=== PATIENT | female | born 1970 | race Caucasian/White ===

== ENCOUNTER 2020-06-01 22:09 | Emergency (ER) | payer OTHER ==
[~2020-06-01 22:09] MED LIST: CRUTCH1 EACH; IBUPROFEN600 MG PO; IBUPROFEN800 MG PO; PERCOCET 5-3251 EACH PO; VITAMIN D50000 UNI1 PO
== END 2020-06-01 23:55 | disposition home or self-care (01) ==
LOC: ED 22:09
DX: S50.861A Insect bite (nonvenomous) of right forearm, initial encounter (principal); F17.200 Nicotine dependence, unspecified, uncomplicated; Z88.1 Allergy status to other antibiotic agents; Z91.040 Latex allergy status; Z79.899 Other long term (current) drug therapy; W57.XXXA Bitten or stung by nonvenomous insect and other nonvenomous arthropods, initial encounter
CPT/HCPCS: 99282

== ENCOUNTER → 2020-11-28 | Emergency (ER) | payer OTHER ==
[~2020-11-28] VITALS: Ht 162.6 cm; Wt 77.1 kg
[~2020-11-28] MED LIST changes: +BUSPIRONE HCL15 MG PO; +NEURONTIN300 MG PO; +NORCO 5-325 TA1 EACH PO; +OMEPRAZOLE40 MG PO; +STOOL SOFTENER250 MG PO; +ZOCOR10 MG PO
--- OUTSIDE RECORDS SUMMARY | 2020-11-28 08:38 | XMS ---
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 Blaze VISIT COUNT (12 MO.) 4 [facility] TOTAL 4 NOTE: Visits indicate total known visits. ED/UCC VISIT TRACKING (12 MO.) 11/28/2020 08:35 [facility] [place] TYPE: Emergency COMPLAINT: - CHEST PAIN 11/13/2020 19:47 [facility] [place] TYPE: Emergency COMPLAINT: - LEG PAIN DIAGNOSES: - Allergy status to other antibiotic agents - Other half-way (current) drug therapy - Pain in left leg - Fall on and from ladder, initial encounter - Pain in left knee - Latex allergy status 11/13/2020 09:56 [facility] [place] TYPE: Emergency COMPLAINT: - LT LEG PAIN DIAGNOSES: - Nicotine dependence, unspecified, uncomplicated - Other arc cutter (current) drug therapy - Sprain of unspecified site of left knee, initial encounter - Latex allergy status - Fall on and from ladder, initial encounter - Allergy status to other antibiotic agents 06/01/2020 22:09 [facility] [place] TYPE: Emergency COMPLAINT: - POSSIBLE INSECT BITE DIAGNOSES: - Latex allergy status - Other half-way (current) drug therapy - Insect bite (nonvenomous) of right forearm, initial encounter - Bitten or stung by nonvenomous insect and other nonvenomous arthropods, initial encounter - Nicotine dependence, unspecified, uncomplicated - Allergy status to other antibiotic agents INPATIENT VISIT TRACKING (12 MO.) No inpatient visits to display in this time frame [email or web address]
--- NOTE | 2020-11-28 21:22 | EKG ---
[facility] [address] [place], [place] [address] Signed Sinus tachycardia Otherwise normal ECG No previous ECGs available Confirmed by TYRELL SCHAEFER MD ([id number] on 11/28/2020 9:21:59 PM Electronically Signed By: TYRELL SCHAEFER MD 11/28/202121 PATIENT NAME: ASTRID REDMAN Electrocardiogram DATE OF : 72 PHYSICIAN: TYRELL SCHAEFER MD REPORT #: [id number] REPORT IS CONFIDENTIAL AND NOT TO BE RELEASED WITHOUT AUTHORIZATION
== END ==
LOC: ED 08:35
DX: R07.9 Chest pain, unspecified (principal); F17.200 Nicotine dependence, unspecified, uncomplicated; Z88.0 Allergy status to penicillin; Z91.040 Latex allergy status; Z88.5 Allergy status to narcotic agent; Z79.899 Other long term (current) drug therapy; Z20.822 Contact with and (suspected) exposure to COVID-19
CPT/HCPCS: 71045; 71260; 80053; 83735; 84484; 85025; 85379; 93005; 93010; 96374; 96375; 99285-25; C9803; J1650; J2405; J3010; Q9967; U0003

== ENCOUNTER 2020-12-02 22:01 | Emergency (ER) | payer OTHER ==
[~2020-12-02] VITALS: Ht 162.6 cm; Wt 77.1 kg
--- OUTSIDE RECORDS SUMMARY | 2020-12-02 22:04 | XMS ---
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 Blaze VISIT COUNT ([address] MO[address] [facility] TOTAL 5 NOTE: Visits indicate total known visits. ED/UCC VISIT TRACKING (12 MO.) 12/02/2020 22:02 [facility] [place] TYPE: Emergency COMPLAINT: - CHEST PAINS 11/28/2020 08:35 [facility] [place] TYPE: Emergency COMPLAINT: - CHEST PAIN DIAGNOSES: - CONTACT WITH AND (SUSPECTED) EXPOSURE TO COVID-19 - Latex allergy status - Other termination clerk (current) drug therapy - Allergy status to narcotic agent - Chest pain, unspecified - Nicotine dependence, unspecified, uncomplicated - Allergy status to penicillin 11/13/2020 19:47 [facility] [place] TYPE: Emergency COMPLAINT: - LEG PAIN DIAGNOSES: - Allergy status to other antibiotic agents - Other termination clerk (current) drug therapy - Pain in left leg - Fall on and from ladder, initial encounter - Pain in left knee - Latex allergy status 11/13/2020 09:56 [facility] [place] TYPE: Emergency COMPLAINT: - LT LEG PAIN DIAGNOSES: - Nicotine dependence, unspecified, uncomplicated - Other termination clerk (current) drug therapy - Sprain of unspecified site of left knee, initial encounter - Latex allergy status - Fall on and from ladder, initial encounter - Allergy status to other antibiotic agents 06/01/2020 22:09 [facility] [place] TYPE: Emergency COMPLAINT: - POSSIBLE INSECT BITE DIAGNOSES: - Latex allergy status - Other shelter (current) drug therapy - Insect bite (nonvenomous) of right forearm, initial encounter - Bitten or stung by nonvenomous insect and other nonvenomous arthropods, initial encounter - Nicotine dependence, unspecified, uncomplicated - Allergy status to other antibiotic agents INPATIENT VISIT TRACKING (12 MO.) [facility]2020 [facility] DIAGNOSES: - Chest pain on breathing - Unstable angina [email or web address]
[2020-12-03] MEDS ORDERED: VALACYCLOVIR1000 MG PO (00:47)
[2020-12-03] MEDS ORDERED: LIDODERM1 EACH TOP (00:47)
--- NOTE | 2020-12-03 22:22 | EKG ---
[facility] [address] [place] [address] Signed Normal sinus rhythm Normal ECG When compared with ECG of 28-NOV-2020 08:40, Nonspecific T wave abnormality now evident in Anterior leads Confirmed by DUC RM MD ([id number]) on 12/03/2020 10:22:00 PM Electronically Signed By: DUC RM MD 12/03/202221 PATIENT NAME: FEROZBRITANYCATHY ANDRES Electrocardiogram DATE OF : 72 PHYSICIAN: DUC RM MD REPORT #: [id number] REPORT IS CONFIDENTIAL AND NOT TO BE RELEASED WITHOUT AUTHORIZATION
== END 2020-12-03 01:00 | disposition home or self-care (01) ==
LOC: ED 22:01
DX: B02.9 Zoster without complications (principal); Z88.0 Allergy status to penicillin; Z91.040 Latex allergy status; Z88.5 Allergy status to narcotic agent; Z79.899 Other long term (current) drug therapy
CPT/HCPCS: 71046; 80053; 84484; 85025; 93005; 93010; 96374; 96375; 99285-25; J2060

== ENCOUNTER 2020-12-10 12:16 | Emergency (ER) | payer OTHER ==
[~2020-12-10] VITALS: Ht 162.6 cm; Wt 77.1 kg
[~2020-12-10 12:16] MED LIST changes: +LIDODERM1 EACH TOP; +VALACYCLOVIR1000 MG PO
--- OUTSIDE RECORDS SUMMARY | 2020-12-10 12:18 | XMS ---
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 Blaze VISIT COUNT (12 MO.) 6 [facility] TOTAL 6 NOTE: Visits indicate total known visits. ED/UCC VISIT TRACKING (12 MO.) 12/10/2020 12:17 [facility] [place] TYPE: Emergency COMPLAINT: - LIGHT HEADEDNESS, SHAKES, HEADACHE 12/02/2020 22:02 [facility] [place] TYPE: Emergency COMPLAINT: - CHEST PAIN DIAGNOSES: - Latex allergy status - Allergy status to narcotic agent - Zoster without complications - Chest pain, unspecified - Allergy status to penicillin - Other termite control service representative (current) drug therapy 11/28/2020 08:35 [facility] [place] TYPE: Emergency COMPLAINT: - CHEST PAIN DIAGNOSES: - CONTACT WITH AND (SUSPECTED) EXPOSURE TO COVID-19 - Allergy status to narcotic agent - Latex allergy status - Other nursing home (current) drug therapy - Allergy status to narcotic agent - Contact with and (suspected) exposure to other viral communicable diseases - Chest pain, unspecified - Nicotine dependence, unspecified, uncomplicated - Allergy status to penicillin 11/13/2020 19:47 [facility] [place] TYPE: Emergency COMPLAINT: - LEG PAIN DIAGNOSES: - Allergy status to other antibiotic agents - Allergy status to other antibiotic agents - Other termite control service representative (current) drug therapy - Pain in left leg - Fall on and from ladder, initial encounter - Pain in left knee - Latex allergy status 11/13/2020 09:56 [facility] [place] TYPE: Emergency COMPLAINT: - LT LEG PAIN DIAGNOSES: - Nicotine dependence, unspecified, uncomplicated - Other termite control service representative (current) drug therapy - Sprain of unspecified site of left knee, initial encounter - Latex allergy status - Fall on and from ladder, initial encounter - Allergy status to other antibiotic agents - Allergy status to other antibiotic agents 06/01/2020 22:09 [facility] [place] TYPE: Emergency COMPLAINT: - POSSIBLE INSECT BITE DIAGNOSES: - Latex allergy status - Other nursing home (current) drug therapy - Insect bite (nonvenomous) of right forearm, initial encounter - Bitten or stung by nonvenomous insect and other nonvenomous arthropods, initial encounter - Nicotine dependence, unspecified, uncomplicated - Allergy status to other antibiotic agents INPATIENT VISIT TRACKING (12 MO.) 11/28/2020 15:07 [facility] TYPE: Medical Surgical DIAGNOSES: - Chest pain on breathing - Unstable angina [id number]
[2020-12-10] MEDS ORDERED: PREDNISONE20 MG PO (12:32)
[2020-12-10] MEDS ORDERED: SIMVASTATIN10 MG PO (12:33)
[2020-12-10] MEDS ORDERED: HYDROCODON-ACE1 EA10 PO (12:34)
[2020-12-10] MEDS ORDERED: PRINIVIL10 MG PO (12:34)
[2020-12-10] MEDS ORDERED: ONDANSETRON ODT4 MG PO (13:31)
== END 2020-12-10 13:58 | disposition home or self-care (01) ==
LOC: ED 12:16
DX: F41.0 Panic disorder [episodic paroxysmal anxiety] (principal); T38.0X5A Adverse effect of glucocorticoids and synthetic analogues, initial encounter; M54.14 Radiculopathy, thoracic region; F17.200 Nicotine dependence, unspecified, uncomplicated; Z88.1 Allergy status to other antibiotic agents; Z91.040 Latex allergy status; Z88.5 Allergy status to narcotic agent; Z79.899 Other long term (current) drug therapy; Z79.52 Long term (current) use of systemic steroids; Z79.891 Long term (current) use of opiate analgesic
CPT/HCPCS: 99283

== ENCOUNTER 2021-05-29 13:18 | Emergency (ER) | payer OTHER ==
[~2021-05-29] VITALS: Ht 162.6 cm; Wt 77.1 kg
[~2021-05-29 13:18] MED LIST changes: +HYDROCODON-ACE1 EA10 PO; +ONDANSETRON ODT4 MG PO; +PREDNISONE20 MG PO; +PRINIVIL10 MG PO; +SIMVASTATIN10 MG PO
[2021-05-29] MEDS ORDERED: ZITHROMAX250 MG PO (13:39)
[2021-05-29] MEDS ORDERED: HYDROCHLOROTH12.5 MG PO (13:40)
[2021-05-29] MEDS ORDERED: ULTRAM50 MG PO (13:40)
[2021-05-29] MEDS ORDERED: HYDROCODON-ACE1 EA10 PO (14:57)
[2021-05-29] MEDS ORDERED: TESSALON PERLE100 MG PO (14:57)
[2021-05-29] MEDS ORDERED: ZOFRAN4 MG PO (14:58)
== END 2021-05-29 15:22 | disposition home or self-care (01) ==
LOC: ED 13:18
DX: J32.9 Chronic sinusitis, unspecified (principal); J06.9 Acute upper respiratory infection, unspecified; R19.7 Diarrhea, unspecified; F17.200 Nicotine dependence, unspecified, uncomplicated; Z88.1 Allergy status to other antibiotic agents; Z91.040 Latex allergy status; Z88.5 Allergy status to narcotic agent; Z79.899 Other long term (current) drug therapy
CPT/HCPCS: 71045; 80053; 81001; 85025; 96374; 96375; 99284-25; J1100; J1885; J2405; J7030

== ENCOUNTER 2024-07-19 11:09 | Emergency (ER) | payer OTHER ==
[~2024-07-19] VITALS: Ht 162.6 cm; Wt 83.3 kg
[~2024-07-19 11:09] MED LIST changes: +HYDROCHLOROTH12.5 MG PO; +TESSALON PERLE100 MG PO; +ULTRAM50 MG PO; +ZITHROMAX250 MG PO; +ZOFRAN4 MG PO
[2024-07-19] MEDS ORDERED: IBUPROFEN800 MG PO (11:22)
[2024-07-19] MEDS ORDERED: LIDOCAINE1 EACH TP (11:22)
[2024-07-19] MEDS ORDERED: NITROGLYCERIN 0.4 MG SUBL SL PRN (11:30)
[2024-07-19] MEDS ORDERED: ondansetron HCL 4 MG/2 ML VIAL IV ONE (11:30)
[2024-07-19] MEDS ORDERED: ASPIRIN 81 MG CHEW PO ONE (11:30)
[2024-07-19] MEDS ORDERED: HYDROmorphone HCL 1 MG/ML SYR IV ONE (11:30)
[2024-07-19 11:31] LABS: BASOPHILS 1.1 % (0-2); EOSINOPHILS 1.4 % (0-6); HEMATOCRIT 44.1 % (35.0-50.0); HEMOGLOBIN 14.9 g/dL (12.0-18.0); MCH 27.5 (27-36); MCHC 33.7 g/dl (30-36); MCV 81.6 fl (81-99); MONOCYTES 7.3 % (0-12); NEUTROPHILS 60.2 % (39-80); PLATELET COUNT 264 K/uL (140-440); RDW 15.2 (10.5-15.0)
[2024-07-19 11:51] LABS: ALBUMIN 4.5 g/dL (3.4-5.0); ALBUMIN/GLOBULIN RATIO 1.13 (1.1-2.4); ALKALINE PHOSPHATASE 138 U/L (46-116); ALT (SGPT) 33 U/L (14-59); ANION GAP 16.7 (7-21); AST (SGOT) 16 U/L (15-37); BILIRUBIN, TOTAL 0.4 ng/dL (0.2-1.0); BUN/CREATININE RATIO 10.89 (6.0-28.6); CALCIUM 9.9 mg/dL (8.5-10.1); CARBON DIOXIDE 28 mmol/L (21-32); CHLORIDE 101 mmol/L (98-107); CREATININE, SERUM 1.01 mg/dL (0.55-1.02); GLOMERULAR FILTRATION RATE,EST 67 mL/min (>60); MAGNESIUM 2.1 mg/dL (1.8-2.4); POTASSIUM 3.7 mmol/L (3.5-5.1); PROTEIN, TOTAL 8.5 g/dL (6.4-8.2); UREA NITROGEN 11 mg/dL (7-18)
[2024-07-19 11:58] LABS: INR 0.95 (0.80-1.30)
[2024-07-19] MEDS ORDERED: diphenhydrAMINE HCL 50 MG/ML VIAL IV ONE (12:45)
[2024-07-19 13:23] VITALS: BP 125/83
--- NOTE | 2024-07-19 15:17 | EKG ---
[facility] [address] [place], [place] [address] Signed Sinus tachycardia Otherwise normal ECG No previous ECGs available Confirmed by Bhumika Nix MD ([id number]) on 07/19/2024 3:17:01 PM Electronically Signed By: BHUMIKA NIX MD 07/19/24 1517 PATIENT NAME: ASTRID REDMAN Electrocardiogram DATE OF : 72 PHYSICIAN: BHUMIKA NIX MD REPORT #: [id number] REPORT IS CONFIDENTIAL AND NOT TO BE RELEASED WITHOUT AUTHORIZATION
== END 2024-07-19 13:23 | disposition home or self-care (01) ==
LOC: ED 11:09
PROVIDERS: Emergency Medicine
DX: R07.89 Other chest pain (principal); F17.200 Nicotine dependence, unspecified, uncomplicated; Z88.1 Allergy status to other antibiotic agents; Z91.040 Latex allergy status; Z88.5 Allergy status to narcotic agent; Z79.899 Other long term (current) drug therapy
CPT/HCPCS: 36415; 71260; 80053; 83735; 83880; 84484; 85025; 85610; 85730; 93005; 93010; 99285-25; A9270; J1170; J1200; J2405; Q9967